=== PATIENT | female | born 1990 | race Caucasian/White ===

== ENCOUNTER 2020-08-21 22:39 | Inpatient (IN) ==
[2020-08-21 23:13] LABS: Bacteria,Urine Occasional /HPF (Few); Bilirubin,Urine Negative (Negative); Blood, Urine Negative (Negative); Glucose,Urine (UA) Negative (Negative); Ketones,Urine Negative (Negative); Nitrite,Urine Negative (Negative); Protein,Urine Negative; RBC,Urine 4 /HPF (0-4); Squamous Epithelial Cell,Urine Occasional /HPF (0-10); Urine Appearance CLEAR (Clear); Urine Color Straw (Yellow); Urine Specific Gravity 1.002 (1.001-1.035); Urine Urobilinogen < 2.0 EU/DL (0.2-1.0)
[2020-08-21] MEDS ORDERED: BUTORPHANOL 2 MG/ML VIAL IV PRN (23:22)
[2020-08-21] MEDS ORDERED: FAMOTIDINE 20 MG/2 ML VIAL IV PRN (23:22)
[2020-08-21] MEDS ORDERED: MEPERIDINE 50 MG/1 ML VIAL IV PRN (23:22)
[2020-08-21] MEDS ORDERED: CITRIC ACID/SODIUM CITRATE 30 ML UDCUP PO PRN (23:27)
[2020-08-21] MEDS ORDERED: OXYTOCIN/LR 20 UNIT/1,000 ML BAG IV PRN (23:28)
[2020-08-21] MEDS ORDERED: CLINDAMYCIN INJ 900 MG/50 ML PREMIX IV ONE (23:29)
[2020-08-21 23:51] LABS: Basophils % 0.2 % (0.0-0.8); Eosinophils # 0.1 10*3/uL (0.0-0.87); Eosinophils % 1.4 % (0.00-10.9); Hematocrit 36.8 VOL% (35.7-47.0); Hemoglobin 11.7 GM/DL (12.0-16.0); Immature Granulocytes % 0.6 %; Immature Granulocytes Absolute 0.06 #; Lymphocytes # 2.8 10*3/uL (1.4-4.0); Lymphocytes % 29.3 % (21.3-54.2); Mean Corpuscular HGB Conc 31.8 GM/DL (32-36); Mean Corpuscular Volume 90.4 FL (87-102); Mean Platelet Volume 10.1 FL (9.6-12.0); Monocytes % 6.6 % (1.7-12.7); Neutrophils % 61.9 % (38.7-73.9); Platelet Count 288 T/CUMM (130-400); Red Blood Count 4.07 MC/CUMM (3.8-5.5); Red Cell Distribution Width 13.1 % (9.3-17.3); White Blood Count 9.7 T/CUMM (4-12)
[2020-08-22 00:08] LABS: Albumin 2.6 G/DL (3.4-5.0); Bilirubin,Total 0.4 MG/DL (0.2-1.0); Calcium 9.5 MG/DL (8.5-10.1); Osmolality,Calculated 270.8 MOS/KG (273-304); Potassium 3.4 MMOL/L (3.5-5.1); Total Protein 7.1 G/DL (6.4-8.2)
[2020-08-22] MEDS: LACTATED RINGERS 1,000 ML IV SCH ×2 (00:10→07:20)
[2020-08-22] MEDS: ONDANSETRON 4 MG/2 ML VIAL IV PRN ×2 (00:12→09:28)
[2020-08-22] MEDS ORDERED: MEPERIDINE 50 MG/1 ML VIAL IV ONE (09:15)
[2020-08-22] MEDS ORDERED: CLINDAMYCIN INJ 900 MG/50 ML PREMIX IV ONE (13:10)
[2020-08-22] MEDS ORDERED: miSOPROStoL 200 MCG TABLET ONE (13:12)
[2020-08-22] MEDS ORDERED: PHENYLEPHRINE 1 MG/10 ML SYRINGE IV ONE (13:13)
[2020-08-22] MEDS ORDERED: CARBOPROST TROMETHAMINE 250 MCG/ML AMP IM ONE (13:13)
[2020-08-22] MEDS ORDERED: ONDANSETRON 4 MG/2 ML VIAL ONE (13:13)
[2020-08-22] MEDS ORDERED: OXYTOCIN/LR 0 UNIT/0 ML BAG IV ONE (13:13)
[2020-08-22] MEDS ORDERED: METHYLERGONOVINE 0.2 MG/1 ML AMP ONE (13:13)
[2020-08-22] MEDS ORDERED: KETOROLAC 30 MG/1 ML VIAL ONE (13:13)
[2020-08-22] MEDS ORDERED: BUPIVACAINE SPINAL 0.75% 2 ML AMP SPINAL ONE (13:13)
[2020-08-22] MEDS ORDERED: TRANEXAMIC ACID 1,000 MG/10 ML VIAL ONE (13:13)
[2020-08-22] MEDS ORDERED: DEXAMETHASONE 4 MG/1 ML VIAL ONE ×2 (13:14)
[2020-08-22 14:11] LABS: Cord Venous Blood HCO3 23.6 MMOL/L; Cord Venous Blood PCO2 41.2 MMHG; Cord Venous Blood PO2 31.8 MMHG
[2020-08-22 14:11] LABS: Bilirubin,Urine Negative (Negative); Blood, Urine Negative (Negative); Glucose,Urine (UA) Negative (Negative); Ketones,Urine 20 mg/dL (Negative); Mucus,Urine Occasional /LPF (Occasional); Nitrite,Urine Negative (Negative); Protein,Urine Negative; Urine Appearance CLEAR (Clear); Urine Color Yellow (Yellow); Urine Specific Gravity 1.012 (1.001-1.035); Urine Urobilinogen < 2.0 EU/DL (0.2-1.0)
[2020-08-22] MEDS ORDERED: SIMETHICONE CHEW 80 MG TABLET PO PRN (14:28)
[2020-08-22] MEDS ORDERED: OXYTOCIN/LR 20 UNIT/1,000 ML BAG IV ONE (14:28)
[2020-08-22] MEDS ORDERED: ONDANSETRON 4 MG/2 ML VIAL IV PRN (14:28)
[2020-08-22] MEDS ORDERED: ACETAMINOPHEN 325 MG TABLET PO PRN (14:28)
[2020-08-22] MEDS ORDERED: RHO(D) IMMUNE GLOBULIN 300 MCG SYRINGE IM ONE (14:28)
[2020-08-22] MEDS ORDERED: LACTATED RINGERS 1,000 ML IV SCH (14:30)
[2020-08-22] MEDS ORDERED: HYDROmorphone 2 MG TABLET PO PRN (14:30)
[2020-08-22] MEDS ORDERED: diphenhydrAMINE 50 MG/1 ML VIAL IV PRN (14:42)
[2020-08-22] MEDS ORDERED: hydrOXYzine HCL 25 MG/1 ML VIAL IM PRN (14:42)
[2020-08-22] MEDS ORDERED: HYDROmorphone 2 MG/1 ML VIAL IV PRN (14:42)
[2020-08-22] MEDS: ACETAMINOPHEN 500 MG TABLET PO SCH (17:28)
[2020-08-22] MEDS: KETOROLAC 30 MG/1 ML VIAL IV SCH (20:08)
[2020-08-22] MEDS: CLINDAMYCIN INJ 900 MG/50 ML PREMIX IV SCH (20:13)
[2020-08-22] MEDS: DOCUSATE SODIUM 100 MG CAPSULE PO SCH (22:08)
[2020-08-23] MEDS: ACETAMINOPHEN 500 MG TABLET PO SCH ×2 (00:03→05:04)
[2020-08-23] MEDS: KETOROLAC 30 MG/1 ML VIAL IV SCH ×2 (02:12→09:39)
[2020-08-23] MEDS: CLINDAMYCIN INJ 900 MG/50 ML PREMIX IV SCH (04:45)
[2020-08-23 06:32] LABS: Basophils % 0.2 % (0.0-0.8); Eosinophils % 0.3 % (0.00-10.9); Hematocrit 32.8 VOL% (35.7-47.0); Hemoglobin 10.9 GM/DL (12.0-16.0); Immature Granulocytes % 0.5 %; Immature Granulocytes Absolute 0.07 #; Lymphocytes # 2.6 10*3/uL (1.4-4.0); Lymphocytes % 19.9 % (21.3-54.2); Mean Corpuscular HGB Conc 33.2 GM/DL (32-36); Mean Corpuscular Volume 89.9 FL (87-102); Monocytes % 5.7 % (1.7-12.7); Neutrophils % 73.4 % (38.7-73.9); Platelet Count 286 T/CUMM (130-400); Red Blood Count 3.65 MC/CUMM (3.8-5.5); Red Cell Distribution Width 12.7 % (9.3-17.3); White Blood Count 13.2 T/CUMM (4-12)
[2020-08-23] MEDS: DOCUSATE SODIUM 100 MG CAPSULE PO SCH ×3 (07:30→20:09)
[2020-08-23] MEDS: MULTIVITAMIN (PRENATAL) TABLET PO SCH ×2 (07:30→09:26)
[2020-08-23] MEDS: IBUPROFEN 800 MG TABLET PO PRN ×2 (09:38→18:35)
[2020-08-23] MEDS: MAGNESIUM HYDROXIDE SUSP 30 ML UDCUP PO PRN (20:09)
[2020-08-24] MEDS: IBUPROFEN 800 MG TABLET PO PRN ×2 (02:49→11:56)
[2020-08-24 08:06] VITALS: BP 128/80
[2020-08-24] MEDS: MAGNESIUM HYDROXIDE SUSP 30 ML UDCUP PO PRN (08:59)
[2020-08-24] MEDS: MULTIVITAMIN (PRENATAL) TABLET PO SCH (09:00)
[2020-08-24] MEDS: DOCUSATE SODIUM 100 MG CAPSULE PO SCH ×2 (09:00→09:01)
[2020-08-24] MEDS ORDERED: MEASLES/MUMPS/RUBELLA VACCINE 0.5 ML VIAL SUBCUT ONE (11:26)
[2020-08-24] MEDS ORDERED: DIPH/TET/ACEL PERT BOOSTER VACCINE 0.5 ML VIAL IM ONE (11:26)
== END 2020-08-24 12:20 | disposition home or self-care (01) | DRG 785 ==
LOC: N.LDOUT 22:39 → N.LD 22:43 → N.OB 08-22 18:05
PROVIDERS: ADMIT Obstetrics & Gynecology; ATTEND Obstetrics & Gynecology